=== PATIENT | male | born 1945 | race Two or more races ===

== ENCOUNTER 2017-10-17 16:34 | Emergency (ER) | payer MEDICARE ==
[2017-10-17 18:40] LABS: ADD MAN DIFF? NO
[2017-10-17 18:48] LABS: BASO % 1 % (0-3); EOS # 0.2 x10^3/uL (0.0-0.7); EOS % 3 % (0-3); HEMATOCRIT 40.9 % (39.0-53.0); HEMOGLOBIN 13.9 g/dL (13.0-17.5); LYMPH # 1.6 x10^3/uL (1.0-4.8); LYMPH % 25 % (24-48); MEAN CORPUSCULAR HEMOGLOBIN 30 pg (25-35); MEAN CORPUSCULAR HGB CONC 34 g/dL (31-37); MEAN CORPUSCULAR VOLUME 88 fL (79-100); MONO # 0.5 x10^3/uL (0.0-1.1); MONO % 7 % (0-9); NEUT # 4.2 x10^3uL (1.8-7.7); NEUT % 65 % (31-73); PLATELET COUNT 157 x10^3/uL (140-400); RED BLOOD COUNT 4.65 x10^6/uL (4.30-5.70); RED CELL DISTRIBUTION WIDTH 13.4 % (11.5-14.5); WHITE BLOOD COUNT 6.5 x10^3/uL (4.0-11.0)
[2017-10-17 18:59] LABS: ANION GAP 5 (6-14); BLOOD UREA NITROGEN 16 mg/dL (8-26); BUN/CREATININE RATIO 23 (6-20); CALCIUM 8.8 mg/dL (8.5-10.1); CARBON DIOXIDE 29 mmol/L (21-32); CHLORIDE 104 mmol/L (98-107); CREATININE 0.7 mg/dL (0.7-1.3); GFR 110.9; GLUCOSE 106 mg/dL (70-99); POTASSIUM 3.7 mmol/L (3.5-5.1); SODIUM 138 mmol/L (136-145)
[2017-10-17 19:06] LABS: ALBUMIN 3.5 g/dL (3.4-5.0); ALK PHOS 68 U/L (46-116); ALT (SGPT) 28 U/L (16-63); AST (SGOT) 20 U/L (15-37); TOTAL BILIRUBIN 0.8 mg/dL (0.2-1.0); TOTAL PROTEIN 7.1 g/dL (6.4-8.2)
== END 2017-10-17 20:57 | disposition short-term general hospital (02) ==
LOC: ER 16:34
DX: R04.0 Epistaxis (principal); J45.909 Unspecified asthma, uncomplicated; I10 Essential (primary) hypertension; E78.00 Pure hypercholesterolemia, unspecified
CPT/HCPCS: 36415; 80053; 85025; 99285

== ENCOUNTER → 2017-11-17 | Outpatient (CLI) | payer MEDICARE | END | disposition home or self-care (01) | LOC: SLPLAB 18:14 | DX: G47.33 Obstructive sleep apnea (adult) (pediatric) (principal); R40.0 Somnolence | CPT/HCPCS: 95810 ==

== ENCOUNTER → 2018-03-04 | Outpatient (CLI) | payer MEDICARE ==
[2018-03-04] MEDS: GADOBUTROL 10 MMOL/10 ML VIAL IV (15:34)
== END | disposition home or self-care (01) ==
LOC: MRI 15:02
DX: H74.8X1 Other specified disorders of right middle ear and mastoid (principal)
CPT/HCPCS: 70544; 70553; A9585

== ENCOUNTER → 2018-04-06 | Outpatient (CLI) | payer MEDICARE ==
[2018-04-06 16:10] LABS: AMPHETAMINE/METHAMPHETAMINE NEG (NEG); BARBITURATES NEG (NEG); BENZODIAZEPINES NEG (NEG); CANNABINOIDS NEG (NEG); COCAINE NEG (NEG); ETHANOL, URINE NEG (NEG); METHADONE NEG (NEG); OPIATES NEG (NEG); PHENCYCLIDINE NEG (NEG)
[2018-04-06 16:33] LABS: THYROID STIM HORMONE (TSH) 1.064 uIU/mL (0.358-3.74)
[2018-04-06 16:35] LABS: VITAMIN-B12 583 pg/mL (247-911)
== END | disposition home or self-care (01) ==
LOC: LAB 15:20
DX: H49.01 Third [oculomotor] nerve palsy, right eye (principal)
CPT/HCPCS: 36415; 80307; 82607; 84443; 86141

== ENCOUNTER → 2018-04-15 | Outpatient (CLI) | payer MEDICARE ==
[2017-10-17 20:40] VITALS: BP 163/77
[~2018-04-15] MED LIST: AMLO5TAB2 PO; CEPH-264 PO; DOXA4TAB2 PO; DOXE10CA PO; LOSA100T6 PO; LOVA20TA2 PO; POLY17PO29 PO; PROAIR HFA8.5 GM INH; ROPI0.5T PO; SODI50SP NS
--- NOTE | 2018-05-05 12:58 | EEG ---
DATE OF SERVICE: 04/15/2018 ELECTROENCEPHALOGRAM NUMBER: [id number] OBJECTIVE: This is a 72-year-old male patient with history of right side facial twitching movements. EEG was requested to help rule out seizure. METHODS: Twenty electrodes were applied according to the international 10-20 electrode placement system. EKG monitoring, hyperventilation, intermittent photic stimulation, monopolar and bipolar montages are routinely utilized. The record was obtained on a digital system with video monitoring. FINDINGS: 1. Background: The patient was recorded in the awake, drowsy, and sleep states. The overall background amplitude is 10-20 microvolts. A posterior dominant rhythm of 8-10 Hz is observed. 2. Abnormalities: No specific epileptiform discharge or electrographic seizure is seen. No focal or diffuse slowing. 3. Activation: Hyperventilation was performed with good efforts and normal response. Intermittent photic stimulation was performed with photic driving. No specific epileptiform discharge or electrographic seizure induced by hyperventilation or intermittent photic stimulation. IMPRESSION: This electroencephalogram is a normal study for the awake, drowsy, and sleep states. No focal, lateralizing, specific epileptiform discharge, or electrographic seizure is seen. ROJAS FREDERICK MD DR: Hilda JOB#: [id number] / [id number] MELISSA
== END | disposition home or self-care (01) ==
LOC: RT 09:49
PROVIDERS: ATTEND Psychiatry & Neurology Neurology
DX: R25.3 Fasciculation (principal); I10 Essential (primary) hypertension; E78.00 Pure hypercholesterolemia, unspecified; J45.909 Unspecified asthma, uncomplicated
CPT/HCPCS: 95816

== ENCOUNTER → 2019-04-13 | Outpatient (CLI) | payer BC, MEDICARE ==
[2017-10-17 20:40] VITALS: BP 163/77
[~2019-04-13] MED LIST changes: +ALBU2.5V8 INH; +AMLO5TAB10 PO; -AMLO5TAB2 PO; +LOSA100T14 PO; -LOSA100T6 PO; +OXYMETAZOLINE 0.05% NASAL SPRAY 30ML BOTTLE. NS ONE; -PROAIR HFA8.5 GM INH; +ZOLPIDEM 5 MG TABLET. PO ONE
--- NOTE | 2019-04-14 12:39 | SLEEP ---
DATE OF STUDY: 04/13/2019 SLEEP STUDY ATTENDING PHYSICIAN: Dr. Kiran Correa. The patient is a 73 years old who weighs 200 pounds with a BMI of 33. The patient had previous sleep study in 2018 and was found to have severe NICO and had an AHI of 77 per hour. He was prescribed CPAP at 12 cm water, but according to the history was not able to tolerate it. He was referred back for another titration study with BiPAP. During the night study, the patient spent 402 minutes in bed and slept for 226 minutes with a low sleep efficiency of 56%. Sleep latency was 169 minutes with a REM latency of 91 minutes. Overall, sleep architecture showed normal stage 1 sleep, increased stage 2 sleep, absent slow wave and reduced REM sleep, which was 17% of the total sleep time. The patient was started on BiPAP at a pressure of 12/8 after initial intolerance to CPAP. At the final pressure of 17/13, patient slept for 188 minutes. The patient had supine as well as a lateral REM sleep. The patient's AHI was reduced to 2 per hour and oxygen saturations remained above 93%. The patient used a small size full face mask. PLMs were seen at index of 37 per hour, but only 1 per hour caused EEG arousals. EKG monitoring revealed an average heart rate of 54 beats per minute, no sustained arrhythmias observed. IMPRESSION: 1. Severe sleep apnea diagnosed by previous sleep study. 2. Moderate periodic limb movements. RECOMMENDATION: 1. BiPAP at 17/13 completely eliminated the patient's sleep apnea and should be used on a nightly basis. 2. Follow up in 4-6 weeks to assess compliance with BiPAP and to document clinical improvement. 3. Weight loss is advised. 4. Avoid EMERGENCY PREPAREDNESS COORDINATOR depressants. 5. Caution regarding driving until symptoms of sleep apnea resolve with the use of BiPAP. PLMs does not need to be treated unless the patient has symptoms of restless legs during the day. TWYLA GLEZ MD DR: MARY/paty JOB#: [id number] / [id number] Kiran Peña
== END | disposition home or self-care (01) ==
LOC: RT 18:43
PROVIDERS: ATTEND Family Medicine
DX: G47.33 Obstructive sleep apnea (adult) (pediatric) (principal); G47.61 Periodic limb movement disorder
CPT/HCPCS: 95811

== ENCOUNTER → 2020-01-25 | Outpatient (CLI) | payer BC ==
[2017-10-17 20:40] VITALS: BP 163/77
[~2020-01-25] MED LIST changes: -OXYMETAZOLINE 0.05% NASAL SPRAY 30ML BOTTLE. NS ONE
--- NOTE | 2020-01-26 10:19 | SLEEP ---
DATE OF STUDY: 01/25/2020 SLEEP STUDY ATTENDING PHYSICIAN: Kiran Correa M.D. The patient is a 74-year-old who weighs 200 pounds with a BMI of 32. The patient's [place] score was 10. The patient had a sleep study on 04/13/2019, but lost a BiPAP machine due to failure to use. Another split night study was requested. During the night study, the patient spent 445 minutes in bed and slept for 318 minutes with a sleep efficiency of 72%. Sleep latency was 108 minutes with a REM latency of 230 minutes. Sleep architecture showed normal stage 1 sleep, increased stage 2 sleep, normal slow wave and reduced REM sleep. During the initial diagnostic portion of the study, the patient slept for 65 minutes. During that time, there were 26 obstructive apneas, no mixed or central apneas and 40 hypopneas. The patient's AHI was 61 per hour with a supine AHI of 68 per hour and a REM sleep was not observed. EKG monitoring revealed an average heart rate of 66 beats per minute, no sustained arrhythmias observed. Nocturnal oximetry study revealed a mean oxygen saturation of 97% with the lowest of 85%. 5% of time oxygen saturation remained between 80% and 89%. PLMS were seen at index of 69 per hour and 7 per hour caused EEG arousals. The patient met the criteria for CPAP initiation. He was started at 9 cm water and titrated up to 18 cm water. At the final pressure, the patient slept for 179 minutes. The patient had supine sleep as well as REM sleep. The patient's AHI was reduced to 1 per hour and oxygen saturation remained above 93%. The patient used a medium size full face mask. IMPRESSION: 1. Severe obstructive sleep apnea at an AHI of 61 per hour. 2. Mild nocturnal hypoxia secondary to obstructive sleep apnea, but resolved with CPAP. 3. Severe PLMS. RECOMMENDATIONS: 1. CPAP at 18 cm water completely eliminated the patient's sleep apnea and should be used on a nightly basis. 2. Follow up in 4-6 weeks to assess compliance with CPAP and to document clinical improvement. 3. Weight loss is strongly advised. 4. Avoid LEAD GENERATOR depressants. 5. Cautioned regarding driving until symptoms of sleep apnea resolve with the use of CPAP. 6. The patient should also be further evaluated for symptoms of restless legs during the day. TWYLA GLEZ MD DR: MARY/paty JOB#: [id number] / [id number] KIARN Lyon MD
== END | disposition home or self-care (01) ==
LOC: RT 18:46
PROVIDERS: ATTEND Family Medicine
DX: G47.33 Obstructive sleep apnea (adult) (pediatric) (principal); G47.34 Idiopathic sleep related nonobstructive alveolar hypoventilation; G47.61 Periodic limb movement disorder; Z68.32 Body mass index [BMI] 32.0-32.9, adult
CPT/HCPCS: 95810